=== PATIENT | male | born 1970 | race African-American/Black ===

== ENCOUNTER 2021-07-05 08:45 | Outpatient (REF) | payer OTHER, SELFPAY ==
--- NOTE | ~2021-07-05 | XR_ITS ---
EXAMINATION: X-RAY PELVIS X-RAY BILATERAL HIPS CLINICAL INFORMATION: Hip pain COMPARISON: X-ray 10/08/2018 TECHNIQUE: Pelvis one view. Bilateral hips each one view. FINDINGS: Total bilateral hip arthroplasties present with the prosthetic components in satisfactory alignment. No evidence of acute fracture. Hardware is intact. No radiographic evidence of hardware complications. Visualized pelvic bones intact. Mild symphysis pubis degeneration. XR/XR hip LT 1V IMPRESSION: Bilateral total hip arthroplasties with prosthetic components satisfactory alignment. No evidence of loosening or hardware complications.
--- NOTE | ~2021-07-05 | XR_ITS ---
EXAMINATION: X-RAY PELVIS X-RAY BILATERAL HIPS CLINICAL INFORMATION: Hip pain COMPARISON: X-ray 10/08/2018 TECHNIQUE: Pelvis one view. Bilateral hips each one view. FINDINGS: Total bilateral hip arthroplasties present with the prosthetic components in satisfactory alignment. No evidence of acute fracture. Hardware is intact. No radiographic evidence of hardware complications. Visualized pelvic bones intact. Mild symphysis pubis degeneration. XR/XR hip RT 1V IMPRESSION: Bilateral total hip arthroplasties with prosthetic components satisfactory alignment. No evidence of loosening or hardware complications.
--- NOTE | ~2021-07-05 | XR_ITS ---
EXAMINATION: X-RAY PELVIS X-RAY BILATERAL HIPS CLINICAL INFORMATION: Hip pain COMPARISON: X-ray 10/08/2018 TECHNIQUE: Pelvis one view. Bilateral hips each one view. FINDINGS: Total bilateral hip arthroplasties present with the prosthetic components in satisfactory alignment. No evidence of acute fracture. Hardware is intact. No radiographic evidence of hardware complications. Visualized pelvic bones intact. Mild symphysis pubis degeneration. XR/XR pelvis 1-2V IMPRESSION: Bilateral total hip arthroplasties with prosthetic components satisfactory alignment. No evidence of loosening or hardware complications.
== END 2021-07-05 08:46 | disposition home or self-care (01) ==
LOC: HO.HOSX 08:45
PROVIDERS: Visit Provider Orthopaedic Surgery
DX: T84.84XA Pain due to internal orthopedic prosthetic devices, implants and grafts, initial encounter (principal); Z96.643 Presence of artificial hip joint, bilateral
CPT/HCPCS: 72170; 73501